=== PATIENT | female | born 1995 | race Caucasian/White ===

== ENCOUNTER 2023-12-17 05:32 | Inpatient (IN) ==
--- NOTE | 2023-12-11 09:38 | Anesthesiology Consultation ---
Date of Service December 11, 2023 Assessment & Plan (1) Encounter for pre-operative examination: - Per assessment counselor on 12/11/23: No known infectious disease contacts, current infectious disease symptoms in past 10 days or COVID positive test result in the past 30 days. Chart Review Chart Review: charge entry clerk initiated History Surgery Operation Date: 12/17/23 07:30 Proposed Procedures p Section (Delivery of Baby Through Abdominal Incision) - Stephanie Mariano MD, FACOG Height/Weight Height: 5 ft 2 in Weight: 73.028 kg Allergies Allergy/AdvReac Type Severity Reaction Status Date / Time No Known Allergies Allergy Verified 12/11/23 08:52 Medications Home Medications Medication Instructions Recorded Confirmed Last Taken no.167-folic acid-dha 1 tab PO QPM 05/07/23 12/11/23 Unknown [One-A-Day ] ferrous sulfate 325 mg (65 mg 325 mg PO Q2D 10/10/23 12/11/23 Unknown iron) tablet Past Medical History Medical History History of palpitations late summer 2022, wore holter monitor; f/u dr. fair, [facility]>"no concerns, no findings" Past Family History Family History Grandmother (Paternal) Colorectal cancer Aunt Myocardial infarction maternal Other Cancer of gastrointestinal tract Lung cancer Denies family history of Ovarian cancer Prostate cancer Breast cancer Past Surgical History Surgical History S/P wisdom tooth extraction Social History Smoking Status: Never smoker Do You Dip or Chew Tobacco: No Hx Alcohol Use: Yes alcohol intake frequency: other Alcohol Intake Frequency Comment: socially-not while Hx Substance Use: No substance use type: does not use Testing Other Testing Cardiac event monitor 07/16/23 NSR HR range 48 min, 80 avg and 126 max Very rare atrial ectopy and rare ventricular ectopy
[2023-12-17] MEDS: LACTATED RINGER'S 1,000 ML IV SCH (05:51)
[2023-12-17 06:16] LABS: Basophils # (auto) 0.06 K/uL (0.00-0.20); Basophils % (auto) 0.4 %; Eosinophils # (auto) 0.09 K/uL (0.00-0.50); Eosinophils % (auto) 0.6 %; Hematocrit (blood only) 38.4 % (37.0-47.0); Immature Granulocytes # (auto) 0.09 K/uL (0.01-0.20); Immature Granulocytes % (auto) 0.6 %; Lymphocytes # (auto) 2.72 K/uL (1.20-3.40); Lymphocytes % (auto) 18.9 %; Mean Corpuscular Hemoglobin 31.2 pg (25.0-34.0); Mean Corpuscular Hgb Conc 33.9 g/dL (32.0-36.0); Mean Corpuscular Volume 92.1 fL (80.0-100.0); Mean Platelet Volume 10.4 fL (9.4-12.4); Monocytes # (auto) 1.26 K/uL (0.11-0.59); Monocytes % (auto) 8.8 %; Neutrophils # (auto) 10.16 K/uL (1.40-6.50); Neutrophils % (auto) 70.7 %; Platelet Count 222 K/uL (130-400); RDW Coefficient of Variation 12.4 % (11.5-14.5); RDW Standard Deviation 41.3 fL (36.4-46.3); Red Blood Count 4.17 M/uL (4.20-5.40); White Blood Count 14.38 K/ul (4.8-10.8)
[2023-12-17] MEDS ORDERED: OXYTOCIN 10 UNITS/ML VIAL ONE ×3 (06:39)
[2023-12-17] MEDS ORDERED: PHENYLEPHRINE HCL 10 MG/ML VIAL ONE (06:41)
[2023-12-17] MEDS ORDERED: fentaNYL citrate PF 100 MCG/2 ML VIAL ONE (06:47)
[2023-12-17] MEDS ORDERED: MoRPHine SULFATE PF 1 MG/ML 10 ML AMP/VIAL ONE (06:47)
--- NOTE | 2023-12-17 07:05 | History & Physical Report ---
Date of Service December 17, 2023 Assessment & Plan (1) Breech presentation: Plan: section. The patient was counseled to the nature of the procedure including alternatives such as labor. Risks were discussed including bleeding infection injury to bowel bladder ureter vessels and even baby. Deep Vein thrombosis, pulmonary embolus discussed. Breakdown of incision reviewed. Deep vein thrombosis pulmonary embolus hernia and failure of the incision to heal were discussed Patient verbalized understanding of this and was given ample time to ask questions Admission and Anticipated Discharge Date Admission Date: December 17, 2023 History of Present Illness Primary Care Provider: Eugene Maldonado, 39+ weeks Breech Allergies Allergy/AdvReac Type Severity Reaction Status Date / Time No Known Allergies Allergy Verified 12/17/23 05:45 Home Medications Medication Instructions Recorded Confirmed Type ferrous sulfate 325 mg (65 mg 325 mg PO Q2D 10/10/23 12/17/23 History iron) tablet vit no.95-ferrous 1 tab PO DAILY 12/17/23 12/17/23 History fumarate 28 mg-folic acid 800 mcg tablet () Patient History Medical History (Updated 12/17/23 @ 05:46 by Kavitha Mo RN) Ovarian cyst History of palpitations late summer 2022, wore holter monitor; f/u dr. maldonado, [facility]>"no concerns, no findings" Surgical History S/P wisdom tooth extraction Family History (Updated 12/17/23 @ 05:47 by Kavitha Mo RN) Grandmother (Paternal) Colorectal cancer Aunt Myocardial infarction maternal Grandmother (Maternal) Lung cancer Other Cancer of gastrointestinal tract Denies family history of Ovarian cancer Prostate cancer Breast cancer Social History (Updated 06/27/23 @ 15:37 by Susan Mcfarlane) Smoking Status: Never smoker Second Hand Exposure: No; Do You Dip or Chew Tobacco: No; Tobacco Cessation Education Requested by Patient: No Hx Alcohol Use: Yes Hx Substance Use: No Preferred Language: Malay Communication Ability: Effective Hearing Ability: Normal Rigging Loft Repairer Required: No Beliefs That Will Affect Care: None marital status: Single marital status details: Shorty (35) [phone] Current Living Situation: Significant Other Current Living Situation Comment: lives with FOB, 1 dog, current occupational status: employed current occupation: [employer] nurse Other Information That Helps Us Care for You: No Feels Safe at Home: Yes Safety Concerns: Feels Safe At This Time Dental Care, Regularly: No Physical Activity Frequency: 3-4 Times per Week Seatbelt Use: always Sunscreen Use: Yes Assistive Devices: None Physical Exam Constitutional: WD/WN, vitals as above well developed and well nourished Respiratory: normal respiratory effort, lungs clear to auscultation normal respiratory effort Cardiovascular: RRR, no murmur, no edema Gastrointestinal (Abdomen): normal bowel sounds, soft, nontender, no hepatosplenomegaly Results & Data Vital Signs (Past 12 Hours) Vital Signs Temp Pulse Resp BP 12/17/23 05:47 97.9 F 18 12/17/23 05:42 77 118/79 Coding Level of Care Code None Diagnoses Breech presentation O32.1XX0
--- NOTE | 2023-12-17 07:08 | Labor Progress Brief Note ---
Date of Service December 17, 2023 Note, brebrenda by U/S this am Assessment & Plan Admission and Anticipated Discharge Date Admission Date: December 17, 2023 Results & Data Vital Signs (Past 12 Hours) Vital Signs Temp Pulse Resp BP 12/17/23 07:06 77 120/85 12/17/23 05:47 97.9 F 18 12/17/23 05:42 77 118/79 Coding Level of Care Code None
[2023-12-17] MEDS: CITRIC ACID/SODIUM CITRATE 15 ML UDC PO SCH (07:12)
[2023-12-17] MEDS: ceFAZolin 2,000 MG in SYRINGE 0 ML IV SCH (07:31)
[2023-12-17] MEDS ORDERED: HYDROmorphone INJ 0.5 MG/0.5 ML SYR IV PRN (08:03)
[2023-12-17] MEDS ORDERED: ONDANSETRON INJ 2 MG/ML 2 ML VIAL IV PRN ×2 (08:03→08:46)
[2023-12-17] MEDS ORDERED: NALOXONE HCL 0.08 MG in SYRINGE 1.8 ML IV PRN (08:03)
[2023-12-17] MEDS ORDERED: NALOXONE HCL 0.4 MG/1 ML VIAL/CARP IV PRN (08:03)
[2023-12-17] MEDS ORDERED: LACTATED RINGER'S 500 ML IV PRN (08:03)
[2023-12-17] MEDS ORDERED: ePHEDrine sulfate 50 MG/ML AMP IV PRN (08:03)
[2023-12-17] MEDS ORDERED: MoRPHine SULFATE PF 1 MG/ML 10 ML AMP/VIAL INT SPINAL ONE (08:03)
[2023-12-17] MEDS ORDERED: NALOXONE HCL 1 MG in SODIUM CHLORIDE 0.9% 1,000 ML IV PRN (08:03)
[2023-12-17] MEDS ORDERED: NALBUPHINE HCL 5 MG in SYRINGE 0 ML IV PRN (08:03)
[2023-12-17] MEDS ORDERED: diphenhydrAMINE 50 MG/ML VIAL IV PRN (08:03)
[2023-12-17] MEDS ORDERED: NO NARCOTICS OR SEDATIVES SCH (08:15)
[2023-12-17] MEDS ORDERED: DC INTRASPINAL MORPHINE SCH (08:15)
[2023-12-17] MEDS ORDERED: SODIUM CHLORIDE 0.9% 1,000 ML IV SCH (08:15)
--- NOTE | 2023-12-17 08:32 | Operative Report ---
PG Post Operative Report Pre & Post Diagnosis Operation Date: 12/17/23 07:30 <No data on this case meets the specified criteria> Complete breech presentation I identified the patient and participated in the time-out.: Yes Procedure Operation Date: 12/17/23 07:30 <No data on this case meets the specified criteria> Low segment transverse section Surgeon Stephanie Mariano MD, FACOG Cyber Security Manager Dr. Collins Estimated Blood Loss 500 Findings Consistent with Post-Op Diagnosis Specimens cord blood Description of Procedure Regional anesthetic had been given by anesthesia patient was prepped and draped with a leftward tilt preoperative antibiotics had been given in appropriate timing by anesthesiology. Once the prep was allowed to fully dry timeout was performed. Pickups with teeth were used to test the incision area was found to be adequate for incision as the patient did not feel sharp pain. Scalpel was used to make a Pfannenstiel incision on the lower abdomen. We then cut through the subcutaneous fat down to the level of the anterior rectus sheath fascia this was cut in the midline and then extended laterally with the curved Brock scissors. At this stage we then placed 2 Ron clamps on the anterior aspect of the fascia. Using the curved Brock's we are able to dissect the fascia superiorly away from the rectus muscles. Care was taken to maintain hemostasis. Ron clamps were then placed to the inferior aspect of the anterior sheath of the fascia. Fascia was then dissected away from the rectus muscles inferiorly towards the pubic bone. A Ron was then placed in the midline both inferiorly and superiorly. This was to allow exposure by retraction rectus muscles were in the midline with were then able to cut through the peritoneum and then enter the peritoneal cavity. Opening was enlarged to allow exposure of the peritoneal cavity both superiorly and inferiorly. Once adequate space was obtained a bladder retractor was placed to expose the lower segment Metzenbaums were used to dissect the bladder flap inferiorly away from the uterus. This was done sharply bladder retractor was then repositioned to expose the lower segment of the uterus Fresh scalpel was used to make a low transverse incision on the uterus. Uterus was then entered bluntly with the operators finger, membranes ruptured and the opening was enlarged using the operators fingers bluntly pulling superiorly and inferiorly to allow exposure. Baby was in complete breech position this feet were palpated and grabbed these were then pulled out of the hysterotomy incision keeping the baby's back anterior and then gentle traction on the baby there was a loose body cord around the baby the arms were then swept towards the chest first on the right and left side and then gentle traction to release the head with no excessive extension live vigorous female . Fluid was clear cord clamped and cut cord gases obtained cord blood obtained baby handed to pediatrics. Placenta removed was removed with traction we ensure the entire placenta was removed with a moist lap sponge into the uterus Uterus was then exteriorized. IV Pitocin had been started by anesthesia tone improved there were no extensions the uterus was then closed using 0 Monocryl in a 2 layer closure the first layer closed in a running locked fashion from left to right and then a second closure from left to right in a running nonlocked fashion. At this stage hemostasis was excellent. Uterus was placed back in the peritoneal cavity with suction irrigation out and inspection of the uterus at this stage revealed excellent hemostasis Retractors were removed urine color was clear at this stage of the case we inspected the rectus muscles they were hemostatic fascia was closed with 0 Vicryl subcutaneous fat was irrigated and closed with 3-0 Vicryl skin closed with 4-0 subcuticular Monocryl Note the adnexa were normal the uterus was normal there was no septum and no mullerian anomaly I attest to the content of the Intraoperative Record and any orders documented therein. Any exceptions are noted below. OB Procedure Charges 85421
[2023-12-17] MEDS ORDERED: MAGNESIUM HYDROXIDE SUSP 30 ML UDC PO PRN (08:46)
[2023-12-17] MEDS ORDERED: SENNA 8.6 MG TAB PO PRN (08:46)
[2023-12-17] MEDS ORDERED: BENZOCAINE 20% SPRY 85 APPLN/85 GM CAN EXT PRN (08:46)
[2023-12-17] MEDS ORDERED: HYDROCORTISONE ACETATE 25 MG SUPP PR PRN (08:46)
[2023-12-17] MEDS ORDERED: LACTATED RINGER'S 1,000 ML IV SCH (08:46)
[2023-12-17] MEDS: OXYTOCIN 20 UNITS/LR 1,002 ML IV SCH (10:09)
--- NOTE | 2023-12-17 10:58 | Anesthesiology Progress Note ---
Date of Service December 17, 2023 Anesthesia Post Procedure Vital Signs Vital Signs: Temp Pulse Resp BP Pulse Ox 12/17/23 10:48 67 100 12/17/23 10:43 58 L 100 12/17/23 10:42 61 112/62 12/17/23 10:38 55 L 100 12/17/23 10:33 56 L 100 12/17/23 10:32 56 L 113/67 12/17/23 10:28 56 L 100 12/17/23 10:23 61 99 12/17/23 10:22 57 L 111/64 12/17/23 10:18 63 99 12/17/23 10:13 67 99 12/17/23 10:12 61 107/63 12/17/23 10:08 62 99 12/17/23 10:03 58 L 98 12/17/23 10:02 16 12/17/23 10:02 53 L 106/60 12/17/23 09:58 55 L 98 12/17/23 09:53 65 98 12/17/23 09:52 51 L 115/64 12/17/23 09:48 66 98 12/17/23 09:43 75 98 12/17/23 09:42 54 L 115/64 12/17/23 09:38 70 97 12/17/23 09:33 75 98 12/17/23 09:32 16 12/17/23 09:32 65 112/57 L 12/17/23 09:28 80 98 12/17/23 09:23 90 98 12/17/23 09:22 16 12/17/23 09:18 80 118/73 97 12/17/23 09:13 85 98 12/17/23 09:12 16 12/17/23 09:08 92 H 98 12/17/23 09:04 94 H 115/55 L 12/17/23 09:03 93 H 98 12/17/23 09:02 16 12/17/23 08:58 95 H 99 12/17/23 08:53 64 98 12/17/23 08:52 16 12/17/23 08:52 68 104/60 12/17/23 08:48 74 94 12/17/23 08:47 76 94 12/17/23 08:43 100 H 99 12/17/23 08:42 16 12/17/23 08:42 76 91/52 L 12/17/23 08:41 76 93 12/17/23 08:38 79 95 12/17/23 08:33 73 95 12/17/23 08:32 36.6 C 20 12/17/23 08:32 75 94/54 L 12/17/23 07:30 20 12/17/23 07:30 36.8 C 20 12/17/23 07:06 77 120/85 12/17/23 05:47 36.6 C 12/17/23 05:42 77 118/79 Notes Mental Status: alert / awake / arousable Patient Amnestic to Procedure: Yes Nausea / Vomiting: adequately controlled Pain: adequately controlled Airway Patency, RR, SpO2: stable & adequate BP & HR: stable & adequate Hydration State: stable & adequate Neuraxial Anesthesia: was administered and sensory block is resolving Anesthetic Complications: no major complications apparent
[2023-12-17] MEDS: KETOROLAC 30 MG/ML VIAL IV PRN (11:22)
[2023-12-17] MEDS: DIPHTHER/TETAN/PERTUS Vaccine (Tdap, Adol/Adult) 0.5mL IM ONE (11:48)
[2023-12-17] MEDS: SIMETHICONE 80 MG CHEW PO SCH (17:26)
[2023-12-17] MEDS: DOCUSATE SODIUM 100 MG CAP PO SCH (20:31)
[2023-12-18] MEDS ORDERED: diphenhydrAMINE Capsule 25 MG CAP PO PRN (02:03)
[2023-12-18] MEDS ORDERED: diphenhydrAMINE 50 MG/ML VIAL IV PRN (02:03)
[2023-12-18] MEDS ORDERED: KETOROLAC 30 MG/ML VIAL IV PRN (02:03)
[2023-12-18] MEDS ORDERED: PROMETHAZINE HCL 25 MG in SODIUM CHLORIDE 0.9% 50 ML IV PRN (02:03)
[2023-12-18] MEDS ORDERED: ONDANSETRON INJ 2 MG/ML 2 ML VIAL IV PRN (02:03)
[2023-12-18] MEDS: IBUPROFEN 600 MG TAB PO PRN (06:03)
[2023-12-18] MEDS: oxyCODONE/ACETAMINOPHEN 5mg/325mg TAB PO PRN (06:03)
[2023-12-18 06:31] LABS: Basophils # (auto) 0.04 K/uL (0.00-0.20); Basophils % (auto) 0.3 %; Eosinophils # (auto) 0.05 K/uL (0.00-0.50); Eosinophils % (auto) 0.3 %; Hematocrit (blood only) 33.3 % (37.0-47.0); Hemoglobin 11.7 g/dl (12.0-16.0); Immature Granulocytes # (auto) 0.14 K/uL (0.01-0.20); Immature Granulocytes % (auto) 0.9 %; Lymphocytes # (auto) 1.74 K/uL (1.20-3.40); Lymphocytes % (auto) 10.9 %; Mean Corpuscular Hemoglobin 32.1 pg (25.0-34.0); Mean Corpuscular Hgb Conc 35.1 g/dL (32.0-36.0); Mean Corpuscular Volume 91.2 fL (80.0-100.0); Mean Platelet Volume 10.6 fL (9.4-12.4); Monocytes # (auto) 1.07 K/uL (0.11-0.59); Monocytes % (auto) 6.7 %; Neutrophils # (auto) 12.91 K/uL (1.40-6.50); Neutrophils % (auto) 80.9 %; Platelet Count 182 K/uL (130-400); RDW Coefficient of Variation 12.4 % (11.5-14.5); RDW Standard Deviation 41.2 fL (36.4-46.3); Red Blood Count 3.65 M/uL (4.20-5.40); White Blood Count 15.95 K/ul (4.8-10.8)
--- NOTE | 2023-12-18 06:49 | Obstetrical Progress Note ---
Date of Service December 18, 2023 Assessment & Plan (1) care and examination: Plan: Doing well today Encourage ambulation Pain control Admission and Anticipated Discharge Date Admission Date: December 17, 2023 Supervising Physician Co-Signing Physician Notes Resident Physician Supervision Note: I was present with Dr.Dr. Antonio during the history and exam. I discussed the case with the resident and agree with the findings and plan as documented in the note. Any exceptions or clarifications are listed here: [None] Documented By: Stephanie Mariano MD, FACOG Subjective 28 yo post op day 14 s/p Ambulation: has stood Voiding: catheter out Passing Gas:: Yes Diet Tolerance:: regular diet Lochia:: Small Feeding Type:: breast/bottle feeding Current Pain Level: moderate Resting comfortably this AM in NAD. Denies GLASGOW, CP, SOB, N/V/D, LE pain/swelling. Review of Systems Review of Systems: reviewed, per HPI Physical Exam Physical Exam: General: patient resting comfortably, NAD, non-toxic in appearance, answers q uestions appropriately. Skin: warm, dry, intact HEENT: NC/AT, anicteric sclera, conjunctiva without injection, moist mucus membranes. Heart: +S1/S2, regular, no m/r/g Lungs: equal air entry bilaterally, no rales/rhonchi/wheezes Abd: +BS, soft, NT/ND, uterine fundus firm at umbilicus, caesarean incision dressing C/D/I. Ext: warm, no clubbing/cyanosis or edema, Mahin's neg. Neuro: nonfocal, speech intact, no facial droop, moving all extremities on command. Results & Data Vital Signs (Past 12 Hours) Vital Signs Temp Pulse Resp BP Pulse Ox O2 Del Method 12/18/23 03:55 36.9 C 75 18 111/73 12/18/23 01:20 18 96 12/18/23 00:30 18 96 12/18/23 00:30 36.8 C 66 18 107/70 12/17/23 23:20 18 96 12/17/23 22:10 18 96 12/17/23 21:10 18 100 12/17/23 20:35 18 100 12/17/23 20:35 37 C 66 18 113/75 100 Room Air 12/17/23 19:15 18 99 Resident Activity Tracking Resident Involvement: Resident Care Provided Care Provided: Adult Hospital Medicine
[2023-12-18] MEDS: FERROUS SULFATE 325 MG TAB PO SCH (08:34)
[2023-12-18] MEDS: PRENATAL VITAMIN 1 TAB PO SCH (08:35)
[2023-12-18] MEDS: bisacodyL 5 MG TABEC PO SCH (20:04)
--- NOTE | 2023-12-19 05:57 | Obstetrical Progress Note ---
Date of Service December 19, 2023 Assessment & Plan (1) care and examination: Plan: Doing well today Encourage ambulation Pain control dc today Admission and Anticipated Discharge Date Admission Date: December 17, 2023 Supervising Physician Co-Signing Physician Notes Resident Physician Supervision Note: I interviewed and examined the patient. Discussed with Dr. Antonio and agree with findings and plan as documented in the note. Any exceptions or clarifications are listed here: [ ] Documented By: Bernice Freitas MD, FACOG Subjective 28 yo post op day 2 s/p Ambulation: normally Voiding: normally Passing Gas:: Yes Diet Tolerance:: regular diet Lochia:: Small Feeding Type:: breast+bottle feeding Current Pain Level: moderate Resting comfortably this AM in NAD. Denies GLASGOW, CP, SOB, N/V/D, LE pain/swelling. Review of Systems Review of Systems: reviewed, per HPI Physical Exam Physical Exam: General: patient resting comfortably, NAD, non-toxic in appearance, answers questions appropriately. Skin: warm, dry, intact HEENT: NC/AT, anicteric sclera, conjunctiva without injection, moist mucus membranes. Heart: +S1/S2, regular, no m/r/g Lungs: equal air entry bilaterally, no rales/rhonchi/wheezes Abd: +BS, soft, NT/ND, uterine fundus firm at umbilicus, caesarean incision C/D/I. Ext: warm, no clubbing/cyanosis or edema, Mahin's neg. Neuro: nonfocal, speech intact, no facial droop, moving all extremities on com hollie. Results & Data Vital Signs (Past 12 Hours) Vital Signs Temp Pulse Resp BP Pulse Ox O2 Del Method 12/18/23 23:25 36.9 C 60 18 113/72 96 Room Air 12/18/23 19:45 37.0 C 81 18 118/75 99 Room Air Resident Activity Tracking Resident Involvement: Resident Care Provided Care Provided: Adult Hospital Medicine
[2023-12-19 07:12] LABS: Hemoglobin 11.3 g/dl (12.0-16.0)
[2023-12-19] MEDS ORDERED: bisacodyL 10 MG SUPP PR PRN (08:21)
--- NOTE | 2023-12-24 08:58 | Discharge Summary ---
Date of Service December 24, 2023 Admission HPI Per Admitting Provider 39+ weeks Breech Admission Exam (Per Admitting) Constitutional WD/WN, vitals as above well developed and well nourished Respiratory normal respiratory effort, lungs clear to auscultation normal respiratory effort Cardiovascular RRR, no murmur, no edema Gastrointestinal (Abdomen) normal bowel sounds, soft, nontender, no hepatosplenomegaly Discharge Data Consultations 12/17/23 05:32 Consult Anesthesiology Stat Procedures Performed Operation Date: 12/17/23 07:30 Actual Procedures p Section, lower transvers uterine incsion, delivery of live female child at 0800. - Stephanie Mariano MD, FACOG Hospital Course (1) care and examination: Doing well today Encourage ambulation Pain control dc today Supervising Physician Co-Signing Physician Notes Resident Physician Supervision Note: I interviewed and examined the patient. Discussed with Dr. Antonio and agree with findings and plan as documented in the note. Any exceptions or clarifications are listed here: [ ] Documented By: Bernice Freitas MD, [facility] [place] Coding Level of Care Code None Diagnoses care and examination Z39.2
== END 2023-12-19 12:45 | disposition home or self-care (01) | DRG 788 ==
LOC: 4S1 05:32 → EDSTATUS 07:30 → 4E2 11:15